=== PATIENT | female | born 1925 | race Caucasian/White ===

== ENCOUNTER 2017-05-20 10:18 | Inpatient (IN) | payer OTHER ==
--- NOTE | 2017-05-20 10:27 | PDOC ---
History of Present Illness - General History Source: Patient Exam Limitations: No Limitations - History of Present Illness Initial Comments: 05/20/17 11:02 The patient is a 89 year old female, BIBA with a significant past medical history of afib on coumadin, HTN who presents to the emergency department with progressively worsening decreased appetite, weakness, and fatigue for 1 week. The patients family reports the patient has had a decrease in appetite refusing to eat and reports yesterday only eating a piece of toast. The patient s family reports also the patient has been unwilling to ambulate by herself secondary to weakness/fatigue. In addtion the patient's family notes the patient having a fall after she tripped on her sheets about a week ago, landing on her right side with no active complaints of pain at this time. Denies any LOC or head strike. Brother in law also reports increased b/l LE edema. She denies recent fevers, chills, headache or dizziness. She denies recent nausea, vomit, diarrhea or constipation. No focal weakness or numbness. She denies recent dysuria, frequency, urgency or hematuria. She denies recent chest pain or shortness of breath. Prior to 1 week ago, her brother in law reports she was eating normally and using her walker to ambulate without difficulty which is her baseline. Allergies: NKA Past surgical history: None reported. Social history: Nonsmoker. Denies EtOH use and recreational drug use. Primary Care Physician: <Higinio Mcnally - Last Filed: 05/20/17 11:28> <Leoncio Dawson - Last Filed: 05/20/17 15:06> - General Chief Complaint: Weakness Stated Complaint: FAILURE TO THRIVE Time Seen by Provider: 05/20/17 10:27 Past History <Higinio Mcnally - Last Filed: 05/20/17 11:28> - Past Medical History Cardiac Disorders: Yes (A FIB) HTN: Yes Hypercholesterolemia: Yes - Immunization History Td Vaccination: Yes Immunization Up to Date: No - Psycho/Social/Smoking Cessation Hx Anxiety: No Suicidal Ideation: No Smoking Status: No Smoking History: Never smoked Have you smoked in the past 12 months: No Number of Cigarettes Smoked Daily: 0 Hx Alcohol Use: No Drug/Substance Use Hx: No Substance Use Type: None <Leoncio Dawson - Last Filed: 05/20/17 15:06> - Past Medical History Allergies/Adverse Reactions: Allergies Allergy/AdvReac Type Severity Reaction Status Date / Time No Known Allergies Allergy Verified 05/20/17 10:50 Home Medications: Ambulatory Orders NK [No Known Home Medication] 05/20/17 Review of Systems - Review of Systems Able to Perform ROS?: Yes Comments:: 05/20/17 11:02 GENERAL/CONSTITUTIONAL: No fever or chills. +weakness. +decreased appetite. HEAD, EYES, EARS, NOSE AND THROAT: No change in vision. No ear pain or discharge. No sore throat. CARDIOVASCULAR: No chest pain or shortness of breath. RESPIRATORY: No cough, wheezing, or hemoptysis. GASTROINTESTINAL: No nausea, vomiting, diarrhea or constipation. GENITOURINARY: No dysuria, frequency, or change in urination. MUSCULOSKELETAL: No joint or muscle swelling or pain. No neck or back pain. SKIN: No rash. + LE edema NEUROLOGIC: No headache, vertigo, loss of consciousness, or change in strength/ sensation. ENDOCRINE: No increased thirst. No abnormal weight change. HEMATOLOGIC/LYMPHATIC: No anemia, easy bleeding, or history of blood clots. ALLERGIC/IMMUNOLOGIC: No hives or skin allergy. <Higinio Mcnally - Last Filed: 05/20/17 11:28> *Physical Exam - Vital Signs Last Vital Signs Temp Pulse Resp BP Pulse Ox 97.7 F 70 16 90/63 97 05/20/17 10:20 05/20/17 10:20 05/20/17 10:20 05/20/17 10:20 05/20/17 10:20 - Physical Exam Comments: 05/20/17 11:03 GENERAL: Awake, alert, and fully oriented, in no acute distress HEAD: No signs of trauma EYES: PERRLA, EOMI, sclera anicteric, conjunctiva clear ENT: Auricles normal inspection, hearing grossly normal, nares patent, oropharynx clear without exudates. Dry mucosa NECK: Normal ROM, supple, no lymphadenopathy, JVD, or masses LUNGS: Breath sounds equal, clear to auscultation bilaterally. No wheezes, and no crackles HEART: irregularly irregular, rate 74, no murmurs, rubs or gallops ABDOMEN: Soft, nontender, normoactive bowel sounds. No guarding, no rebound. No masses EXTREMITIES: 2+pitting edema bilaterally R>L. Erythema to the anterior distal right calf circumferentially. Mild erythema to the distal left calf posteriorly. No induration. Normal range of motion. . No clubbing or cyanosis. NEUROLOGICAL: Normal speech, cranial nerves intact, negative pronator drift, 5/ 5 strength in all 4 extremities, normal sensation to light touch in all 4 extremities, normal cerebellar exam, normal gait, normal reflexes and tone SKIN: Warm, Dry, normal turgor <Higinio Mcnally - Last Filed: 05/20/17 11:28> Heart Score/ECG Review - ECG Impressions Comment:: 05/20/17 11:28 EKG Impressions reported by at 11:28 In Afib with 60bpm Normal axis T Wave inversion in leads 1 AVL, 2 and V2-V6 ST depressions in leads V2- 1 AVL, and V4-V6 with no ST elevations When compared to EKG to 2001 T wave inversion in 1 AVL are new. <Higinio Mcnally - Last Filed: 05/20/17 11:28> ED Treatment Course - LABORATORY CBC & Chemistry Diagram: 05/20/17 11:05 05/20/17 11:05 <Higinio Mcnally - Last Filed: 05/20/17 11:28> - LABORATORY CBC & Chemistry Diagram: 05/20/17 11:05 05/20/17 11:05 <Leoncio Dawson - Last Filed: 05/20/17 15:06> Medical Decision Making - Medical Decision Making 05/20/17 13:30 89-year-old female history of A. fib on Coumadin and hypertension who presents with 1 week of or appetite associated with generalized weakness. Her son in law reports that she has only eaten a piece of toast over the last 2 days. On presentation she was hypotensive to the 90s systolic and on physical exam had dry mucous membranes and 2+ lower extremity edema. History is concerning for progressive CHF versus ACS versus infectious etiology (UTI vs PNA) as cause for generalized weakness/decreased appetite. Will also do trauma workup given fall last week. -labs -UA -CXR/pelvis XR -CTH -500cc bolus -US LE b/l -admit 05/20/17 15:05 Workup thus far remarkable for hypokalemia at 2.4 and BNP in the 1999s. Chest x- ray also concerning for vascular congestion. Likely acute heart failure. Spoke with Dr. Alvarado, the patient's PMD who does not admit to the hospital. I discussed all the findings with Dr. Alvarado and have admitted pt to the hospitalist. <Leoncio Dawson - Last Filed: 05/20/17 15:06> *DC/Admit/Observation/Transfer - Attestations Scribe Attestion: 05/20/17 11:03 Documentation prepared by Higinio Mcnally, acting as medical radiation tech for Leoncio Dawson MD. <Higinio Mcnally - Last Filed: 05/20/17 11:28> - Discharge Dispostion Admit: Yes - Attestations Physician Attestion: 05/20/17 15:06 I, Dr. Leoncio Dawson MD, attest that this document has been prepared under my direction and personally reviewed by me in its entirety. I further attest, that it accurately reflects all work, treatment, procedures and medical decision -making performed by me. <Leoncio Dawson - Last Filed: 05/20/17 15:06> Diagnosis at time of Disposition: Heart failure Qualifiers: Heart failure type: unspecified heart failure type Heart failure chronicity: unspecified heart failure chronicity Qualified Code(s): I50.9 - Heart failure, unspecified - Discharge Dispostion Condition at time of disposition: Stable - Referrals Referrals: Blue Nicholas MD [Primary Care Provider] -
[2017-05-20] MEDS ORDERED: SODIUM CHLORIDE 0.9% 1000 ML INFUS.BAG IV ONE ×2 (10:41→10:44)
[2017-05-20 11:48] LABS: INR 3.6 (0.82-1.09); PROTHROMBIN TIME (PATIENT) 40.7 SEC (9.98-11.88)
[2017-05-20 11:51] LABS: ACTIVATED PTT 47.5 SECONDS (26.9-34.4)
[2017-05-20 11:53] LABS: BASOPHIL 0.5 % (0-2.0); EOSINOPHIL 2.1 % (0-4.5); MCH 28.2 pg (25.7-33.7); MCHC 32.9 g/dl (32.0-36.0); MEAN CELL VOLUME 85.8 fl (80-96); MEAN PLT VOLUME 8.4 fl (7.5-11.1); NEUTROPHILS 78.5 % (42.8-82.8); PLATELET COUNT 144 K/MM3 (134-434); RDW 16.8 % (11.6-15.6); WHITE BLOOD COUNT 7.8 K/mm3 (4.0-10.0)
[2017-05-20 12:32] LABS: ALBUMIN 3.5 g/dl (3.4-5.0); ALK PHOS 70 U/L (45-117); ANION GAP 15 (8-16); BILIRUBIN,TOTAL 0.8 mg/dL (0.2-1.0); CALCIUM 9.1 mg/dL (8.5-10.1); CO2 32 mmol/L (21-32); CREATININE 2.7 mg/dL (0.55-1.02); GLUCOSE,RANDOM 127 mg/dL (74-106); MAGNESIUM 3.3 mg/dL (1.8-2.4); SGOT/AST 14 U/L (15-37); SGPT/ALT 17 U/L (12-78); TOT PROT 6.5 g/dl (6.4-8.2)
[2017-05-20] MEDS ORDERED: POTASSIUM CHLORIDE ORAL LIQUID 20 MEQ/15 ML PO ONE ×2 (13:02→23:47)
[2017-05-20] MEDS ORDERED: POTASSIUM CHLORIDE ORAL LIQUID 20 MEQ/15 ML ONE (13:59)
--- NOTE | 2017-05-20 14:02 | EKG ---
Test Reason : Blood Pressure : / mmHG Vent. Rate : 060 BPM Atrial Rate : 056 BPM P-R Int : 000 ms QRS Dur : 074 ms QT Int : 420 ms P-R-T Axes : 000 -09 199 degrees QTc Int : 420 ms POOR DATA QUALITY, INTERPRETATION MAY BE ADVERSELY AFFECTED ATRIAL FIBRILLATION LOW VOLTAGE QRS ABNORMAL ECG WHEN COMPARED WITH ECG OF 22-JUN-2002 11:40, SIGNIFICANT CHANGES HAVE OCCURRED Confirmed by MIKEY SIGALA, ZACKERY ([id number]) on 05/20/2017 2:01:51 PM Referred By: Confirmed By:ZACKERY JENSEN MD
[2017-05-20 14:22] LABS: TROPONIN I 0.02 ng/ml (0.00-0.05)
--- NOTE | 2017-05-20 15:03 | HP ---
Admitting History and Physical - Smoking History Smoking history: Never smoked Have you smoked in the past 12 months: No Aproximately how many cigarettes per day: 0 - Alcohol/Substance Use Hx Alcohol Use: No Home Medications - Allergies Allergies/Adverse Reactions: Allergies Allergy/AdvReac Type Severity Reaction Status Date / Time No Known Allergies Allergy Verified 05/20/17 10:50 - Home Medications Home Medications: Ambulatory Orders NK [No Known Home Medication] 05/20/17 Physical Examination Vital Signs: Vital Signs Temperature 97.7 F 05/20/17 10:20 Pulse Rate 70 05/20/17 10:20 Respiratory Rate 16 05/20/17 10:20 Blood Pressure 90/63 05/20/17 10:20 O2 Sat by Pulse Oximetry (%) 97 05/20/17 10:20 Labs: CBC, BMP 05/20/17 11:05 05/20/17 11:05
--- NOTE | 2017-05-20 16:35 | HP ---
CHIEF COMPLAINT: Decrease in appetite PCP: Dr. Scruggs HISTORY OF PRESENT ILLNESS: This is an 89 year old female with PMHx of A.fib (on Coumadin), HTN, diastolic CHF?, chronic gout, arthritis, who presented to the ED with decrease in appetite beginning about 5 days ago, weakness, and fatigue. The patient's sister and [id number] at bedside. They report about one week ago the patient tripped over her sheets landing on her right side. They deny any head trauma stating the patient has not had any complaints of pain since falling. Since the fall, the patient has had progressive decrease in appetite. The [id number] states in the past two days she has only had 1/4 piece of toast. ER course was notable for: (1) INR 3.6 (2) Na 127 (3) K 2.6: 40 meq po given (4) BUN 90, Cr 2.7 (5) Head CT: with no evidence of acute intracranial pathology. Small chronic bilateral basal ganglia infarcts. Mild periventricular microvascular ischemic gliosis (6) Hip/pelvis CT: No acute bony abnormalities are seen (7) Bilateral lower extremity doppler negative for DVT (8) Temp 97.7, HR 70, BP 90/63, RR 16, Or 97% on RA Recent Travel: denies PAST MEDICAL HISTORY: As above Social History: Smoking: Denies Alcohol: Denies Drugs: Denies Family History: Allergies No Known Allergies Allergy (Verified 05/20/17 10:50) HOME MEDICATIONS: Home Medications Medication Instructions Recorded Allopurinol 300 mg PO DAILY 05/20/17 Carvedilol [Coreg] 6.25 mg PO BID 05/20/17 Furosemide [Lasix] 80 mg PO BID 05/20/17 Metolazone 2.5 mg PO DAILY 05/20/17 Potassium Chloride 20 meq PO DAILY 05/20/17 Valsartan [Diovan] 160 mg PO DAILY 05/20/17 Warfarin Sodium 2.5 mg PO DAILY 05/20/17 REVIEW OF SYSTEMS CONSTITUTIONAL: Generalized weakness and decrease in appetite Absent: fever, chills, diaphoresis, weight change HEENT: Absent: rhinorrhea, nasal congestion, throat pain, throat swelling, difficulty swallowing, mouth swelling, ear pain, eye pain, visual changes CARDIOVASCULAR: Lower extremity edema. Absent: chest pain, syncope, palpitations , lightheadedness RESPIRATORY: Absent: cough, shortness of breath, dyspnea with exertion, wheezing , stridor, hemoptysis GASTROINTESTINAL:Absent: abdominal pain, abdominal distension, nausea, vomiting , diarrhea, constipation, melena, hematochezia GENITOURINARY: Absent: dysuria, frequency, urgency, hesitancy, hematuria, flank pain, genital pain MUSCULOSKELETAL: Absent: myalgia, joint swelling, back pain, neck pain SKIN: Absent: rash, itching, pallor HEMATOLOGIC/IMMUNOLOGIC: Absent: easy bleeding, easy bruising, lymphadenopathy, frequent infections ENDOCRINE: Absent: unexplained weight gain, unexplained weight loss, heat intolerance, cold intolerance NEUROLOGIC: Absent: headache, focal weakness or paresthesias, dizziness, seizure , mental status changes PSYCHIATRIC: Absent: anxiety, depression, suicidal or homicidal ideation, hallucinations. PHYSICAL EXAMINATION GENERAL: Awake, alert, in no acute distress. HEAD: Normal with no signs of trauma. EYES: Pupils equal, round and reactive to light, extraocular movements intact, sclera anicteric, conjunctiva clear. No lid lag. EARS, NOSE, THROAT: Ears normal, nares patent, oropharynx clear without exudates. Moist mucous membranes. NECK: Normal range of motion, supple without lymphadenopathy, JVD, or masses. LUNGS: Breath sounds equal, clear to auscultation bilaterally. No wheezes, and no crackles. No accessory muscle use. HEART: Irregularly irregular. S1 and S2 ABDOMEN: Soft, nontender, not distended, normoactive bowel sounds, no guarding, no rebound, no masses. MUSCULOSKELETAL: Normal range of motion at all joints. No bony deformities or tenderness. No CVA tenderness. UPPER EXTREMITIES: 2+ pulses, warm, well-perfused. No cyanosis. No clubbing. No peripheral edema. LOWER EXTREMITIES: B/l lower extremity 2+ pitting edema. 2+ pulses, warm, well- perfused. No calf tenderness. No peripheral edema. NEUROLOGICAL: Cranial nerves II-XII intact PSYCHIATRIC: Cooperative. Good eye contact. Appropriate mood and affect. CBCD WBC 7.8 K/mm3 (4.0-10.0) 05/20/17 11:05 RBC 4.55 M/mm3 (3.60-5.2) 05/20/17 11:05 Hgb 12.8 GM/dL (10.7-15.3) 05/20/17 11:05 Hct 39.0 % (32.4-45.2) 05/20/17 11:05 MCV 85.8 fl (80-96) 05/20/17 11:05 MCHC 32.9 g/dl (32.0-36.0) 05/20/17 11:05 RDW 16.8 % (11.6-15.6) H 05/20/17 11:05 Plt Count 144 K/MM3 (134-434) 05/20/17 11:05 MPV 8.4 fl (7.5-11.1) 05/20/17 11:05 CMP Sodium 127 mmol/L (136-145) L 05/20/17 11:05 Potassium 2.6 mmol/L (3.5-5.1) L* 05/20/17 11:05 Chloride 80 mmol/L (98-107) L 05/20/17 11:05 Carbon Dioxide 32 mmol/L (21-32) 05/20/17 11:05 Anion Gap 15 (8-16) 05/20/17 11:05 BUN 90 mg/dL (7-18) H 05/20/17 11:05 Creatinine 2.7 mg/dL (0.55-1.02) H 05/20/17 11:05 Creat Clearance w eGFR 16.59 (>60) 05/20/17 11:05 Random Glucose 127 mg/dL (74-106) H 05/20/17 11:05 Calcium 9.1 mg/dL (8.5-10.1) 05/20/17 11:05 Total Bilirubin 0.8 mg/dL (0.2-1.0) 05/20/17 11:05 AST 14 U/L (15-37) L 05/20/17 11:05 ALT 17 U/L (12-78) 05/20/17 11:05 Alkaline Phosphatase 70 U/L (45-117) 05/20/17 11:05 Total Protein 6.5 g/dl (6.4-8.2) 05/20/17 11:05 Albumin 3.5 g/dl (3.4-5.0) 05/20/17 11:05 CARDIAC ENZYMES Troponin I 0.02 ng/ml (0.00-0.05) 05/20/17 11:05 Assessment: This is an 89 year old female with PMHx of Ryan (on Coumadin), HTN , diastolic CHF?, chronic gout, arthritis, who presented to the ED with decrease in appetite beginning about 5 days ago, weakness, and fatigue. Plan: 1) : SERG on CKD - Baseline Cr 1.3 (from pcp labs 02/16/2017) - SERG due to thiazide diuretics (sodium 127) vs. dehydration vs. obstruction vs. worsening CKD? - F/u urine electrolytes to calculate FeUrea - F/u urine sodium/urine osmo - Renal/bladder ultrasound with moderately atrophic kidneys with no evidence of hydronephrosis or acute pathology - Hold ARB - Hold Metolazone - Hold Lasix for now given SERG. While patient has 2+ pitting edema, it appears 3 -4+ is baseline according to ED note from 04/17/16. Lungs CTA on exam as well. - F/u nephrology consult 2) Cardiology: CHF, likely diastolic - F/u ECHO - Does not appear to be overloaded. However, f/u serum osmo - As above, hold Metolazone and Lasix 2/2 SERG - Continue Coreg - F/u cardiology consult A.fib - Hold Coumadin as INR supratherpeutic - Continue Coreg for rate control 3) MSK: Chronic gout - Continue Allopurinol 4) F/E/N: - Sodium controlled diet - Hyponatremia: hypovolemia vs. hypervolemia. F/u serum osmo, urine osmo, urine sodium - Hypokalemia: repleted in ED, f/u PM BMP - Dietary consult for poor po intake - Family reports patient has good po fluid intake - F/u TSH, HgbA1c 5) Prophylaxis: - Hold chemical DVT prophylaxis as the patient's INR is supratherapeutic - SCDs bilaterally - PT evaluation 6) Dispo: - Requires continued inpatient care CODE STATUS: FULL CODE Problem List - Problem (1) Hypokalemia Code(s): E87.6 - HYPOKALEMIA (2) Hyponatremia Code(s): E87.1 - HYPO-OSMOLALITY AND HYPONATREMIA (3) SERG (acute kidney injury) Code(s): N17.9 - ACUTE KIDNEY FAILURE, UNSPECIFIED (4) CKD (chronic kidney disease) Code(s): N18.9 - CHRONIC KIDNEY DISEASE, UNSPECIFIED Visit type - Emergency Visit Emergency Visit: Yes ED Registration Date: 05/20/17 Care time: The patient presented to the Emergency Department on the above date and was hospitalized for further evaluation of their emergent condition. - New Patient This patient is new to me today: Yes Date on this admission: 05/20/17 - Critical Care Critical Care patient: No
--- NOTE | 2017-05-20 17:53 | CON.CARD ---
Consult Consult Specialty:: Cardiology Reason for Consultation:: Afib. Generalized fatigue - History of Present Illness Chief Complaint: Decreased appetite History of Present Illness: This is an 89 year old female with a PMH of AFIB on coumadin. History of HTN. She was on a combination of Lasix 80 mg PO bid and metolazone as and out patient. She presents today (05/20/17) with generalized fatigue and a decreased appetite. Her EKG shows AFIB at 60 BPM with low voltage. Her Sodium was 127, K+ 2.6, Cr 2.7. Trops 0.02, BNP 2644, adn her INR was 3.6. She was noted by her family to have worsening lower extremity edema. She denies chest pain. - Alcohol/Substance Use Hx Alcohol Use: No - Smoking History Smoking history: Never smoked Have you smoked in the past 12 months: No Aproximately how many cigarettes per day: 0 Home Medications - Allergies Allergies/Adverse Reactions: Allergies Allergy/AdvReac Type Severity Reaction Status Date / Time No Known Allergies Allergy Verified 05/20/17 10:50 - Home Medications Home Medications: Ambulatory Orders Allopurinol 300 mg PO DAILY 05/20/17 Carvedilol [Coreg] 6.25 mg PO BID 05/20/17 Furosemide [Lasix] 80 mg PO BID 05/20/17 Metolazone 2.5 mg PO DAILY 05/20/17 Potassium Chloride 20 meq PO DAILY 05/20/17 Valsartan [Diovan] 160 mg PO DAILY 05/20/17 Warfarin Sodium 2.5 mg PO DAILY 05/20/17 Review of Systems Unable to obtain ROS, reason: As per HPI Vital Signs: Vital Signs Temperature 97.7 F 05/20/17 10:20 Pulse Rate 70 05/20/17 10:20 Respiratory Rate 16 05/20/17 10:20 Blood Pressure 90/63 05/20/17 10:20 O2 Sat by Pulse Oximetry (%) 97 05/20/17 10:20 Constitutional: Yes: Well Nourished, No Distress Neck: Yes: WNL Respiratory: Yes: Other (Minimal basilar crackles) Gastrointestinal: Yes: Soft Cardiovascular: Yes: Pulse Irregular Heart Sounds: Yes: S1, S2 (No MRHG) Edema: Yes Edema: LLE: 2+, RLE: 2+ Neurological: Yes: Alert, Oriented (Non focal) Psychiatric: Yes: WNL - Other Data Labs, Other Data: INR, PTT INR 3.60 (0.82-1.09) H 05/20/17 11:05 Assessment/Plan 89 year old female with a PMH of AFIB on coumadin. History of HTN. She was on a combination of Lasix 80 mg PO bid and metolazone as and out patient. She presents today (05/20/17) with generalized fatigue and a decreased appetite. Her EKG shows AFIB at 60 BPM with low voltage. Her Sodium was 127, K+ 2.6, Cr 2.7. Trops 0.02, BNP 2644, adn her INR was 3.6. She was noted by her family to have worsening lower extremity edema. Replete K+ Hold Diuretics Free water restriction Obtain echocardiogram Obtain TFT's Continue Coreg 6.25 mg PO BID Continue Diovan 160 mg PO daily AFIB Continue coumadin to an INR of 2 - 3 Wiill follow with you.
[2017-05-20 21:17] LABS: URINE APPEARANCE SLCLOUDY; URINE BILIRUBIN NEGATIVE (NEGATIVE); URINE BLOOD 1+ (NEGATIVE); URINE COLOR YELLOW; URINE GLUCOSE (UA) NEGATIVE (NEGATIVE); URINE KETONE NEGATIVE (NEGATIVE); URINE NITRITE NEGATIVE (NEGATIVE); URINE PROTEIN NEGATIVE (NEGATIVE); URINE UROBILINOGEN NEGATIVE mg/dL (0.2-1.0)
[2017-05-20] MEDS: CARVEDILOL 6.25 MG TABLET (FP) PO SCH (21:17)
[2017-05-20 21:18] LABS: URINE LEUK ESTERASE 1+ (NEGATIVE)
[2017-05-20 21:43] LABS: URINE BACTERIA RARE /hpf (NONE SEEN); URINE HYALINE CAST 7 /lpf; URINE MUCUS RARE; URINE RBC <1 /hpf (0-3); URINE WBC 10 /hpf (3-5)
[2017-05-20 22:14] LABS: SODIUM,RANDOM URINE 15 MMOL/L
[2017-05-20 22:35] LABS: URINE CREATININE 75.7 mg/dL (20-320)
[2017-05-20 23:04] LABS: ANION GAP 12 (8-16); CALCIUM 8.6 mg/dL (8.5-10.1); CO2 31 mmol/L (21-32); CREATININE 2.4 mg/dL (0.55-1.02); GLUCOSE,RANDOM 150 mg/dL (74-106)
[2017-05-21 06:27] VITALS: BMI 28.2
[2017-05-21 07:59] LABS: BASOPHIL 0.6 % (0-2.0); EOSINOPHIL 2.1 % (0-4.5); MCH 28.4 pg (25.7-33.7); MCHC 33.1 g/dl (32.0-36.0); MEAN CELL VOLUME 85.7 fl (80-96); MEAN PLT VOLUME 8.9 fl (7.5-11.1); NEUTROPHILS 79.8 % (42.8-82.8); PLATELET COUNT 132 K/MM3 (134-434); RDW 16.6 % (11.6-15.6); WHITE BLOOD COUNT 6.3 K/mm3 (4.0-10.0)
[2017-05-21 08:14] LABS: INR 3.99 (0.82-1.09); PROTHROMBIN TIME (PATIENT) 45.2 SEC (9.98-11.88)
[2017-05-21 08:53] LABS: ALBUMIN 2.9 g/dl (3.4-5.0); ALK PHOS 58 U/L (45-117); ANION GAP 12 (8-16); BILIRUBIN,TOTAL 0.7 mg/dL (0.2-1.0); CALCIUM 8.4 mg/dL (8.5-10.1); CO2 30 mmol/L (21-32); GLUCOSE,RANDOM 110 mg/dL (74-106); SGOT/AST 17 U/L (15-37); SGPT/ALT 13 U/L (12-78); THYROID STIMULATING HORMONE 3.35 uIU/ml (0.358-3.74); TOT PROT 5.3 g/dl (6.4-8.2)
[2017-05-21] MEDS ORDERED: POTASSIUM CHLORIDE ORAL LIQUID 20 MEQ/15 ML PO ONE (09:29)
[2017-05-21] MEDS: CARVEDILOL 6.25 MG TABLET (FP) PO SCH ×2 (09:37→21:59)
[2017-05-21] MEDS: ALLOPURINOL 300 MG TABLET (FP) PO SCH (09:37)
--- NOTE | 2017-05-21 09:59 | CONSULT ---
Consultation: REQUESTING PROVIDER: CONSULT REQUEST: We have been asked to medically evaluate this patient for ( Nephrology ). HISTORY OF PRESENT ILLNESS: This is an 89 year old female with a PMH of, HTN, AFIB on coumadin. Which was brought to hospital for decraese in appetite from one last 5-6 days. Patient states that she had a fall few days ago but didn't hit her head, denies loc. In hospital skyler ws found to have, serg, hyponatremia, hypokalemia. Patient Denies taking, advil, motrin, neproxane. She take tylenol for pain. Denies any recent antibiotic use. Denies SOB,, chest pain , cough, puffiness of face. She states that she always have some b/l lower limb edema and has not noticed any change in swelling. Denies puffiness of face , denies abdominal distension, diarrhoea, vomiting. Denies any difficulty in urination, denies burning micturation, Denies any change in frequency. Unable to color of urine. States that she take her diuretic regularly but from last few days eating and drinking less. has History of HTN. She was on a combination of Lasix 80 mg PO bid and metolazone as and out patient. S Her Sodium was 127, K+ 2.6, Cr 2.7. Trops 0.02, BNP 2644, In ED patialejandra got IV fluid Her creatnine decreased from 2.7 to 2.0 Laboratory Tests 05/20/17 05/20/17 05/21/17 11:05 20:25 06:05 Potassium 2.6 L* 2.8 L* 3.0 L Creatinine 2.7 H 2.4 H 2.0 H Hemoglobin A1c % 05/21/17 06:05 Potassium Creatinine Hemoglobin A1c % 6.3 H REVIEW OF SYSTEMS: CONSTITUTIONAL: Absent: fever, chills, diaphoresis, generalized weakness, malaise, loss of appetite, weight change HEENT: Absent: rhinorrhea, nasal congestion, throat pain, CARDIOVASCULAR: Absent: chest pain, syncope, palpitations, irregular heart rate, lightheadedness , peripheral edema RESPIRATORY: Absent: cough, shortness of breath, dyspnea with exertion, orthopnea, GASTROINTESTINAL: Absent: abdominal pain, abdominal distension, nausea, vomiting, diarrhea, constipation, GENITOURINARY: Absent: dysuria, frequency, urgency, hesitancy, hematuria, flank pain, genital pain MUSCULOSKELETAL: chronic swelling in b/l lower limb. PHYSICAL EXAMINATION Vital Signs - 24 hr 05/20/17 05/20/17 05/20/17 17:50 17:56 18:10 Temperature Pulse Rate 58 L Pulse Rate [ 63 Apical] Respiratory 16 18 Rate Blood Pressure 96/47 Blood Pressure 100/53 [Right Arm] O2 Sat by Pulse 96 97 Oximetry (%) 05/20/17 05/20/17 05/20/17 19:24 21:13 22:37 Temperature 97.7 F Pulse Rate 63 Pulse Rate [ Apical] Respiratory 20 Rate Blood Pressure 102/55 Blood Pressure [Right Arm] O2 Sat by Pulse 96 98 Oximetry (%) 05/21/17 05/21/17 02:00 05:57 Temperature 98 F 97.9 F Pulse Rate 78 78 Pulse Rate [ Apical] Respiratory 20 21 Rate Blood Pressure 96/58 107/58 Blood Pressure [Right Arm] O2 Sat by Pulse Oximetry (%) GENERAL: Awake, alert, EARS, NOSE, THROAT:, oropharynx clear without exudates. dry mucous membranes. dry lips and perioral skin NECK: Normal range of motion, no JVD, or masses. LUNGS: Breath sounds equal, clear to auscultation bilaterally. No wheezes, and no crackles. No accessory muscle use. HEART: s1s2 normal, irregular, no murmur ABDOMEN: Soft, nontender, not distended, normoactive bowel sounds, no guarding, no rebound, no masses. UPPER EXTREMITIES: 2+ pulses, warm, well-perfused. No cyanosis No peripheral edema. LOWER EXTREMITIES: chronic peripheral edema. PSYCHIATRIC: Cooperative. Good eye contact.. SKIN: Warm, dry, normal turgor, Laboratory Results - last 24 hr 05/20/17 05/20/17 05/20/17 18:22 18:30 18:30 WBC RBC Hgb Hct MCV MCH MCHC RDW Plt Count MPV Neutrophils % Lymphocytes % Monocytes % Eosinophils % Basophils % INR Sodium Potassium Chloride Carbon Dioxide Anion Gap BUN Creatinine Creat Clearance w eGFR Random Glucose Hemoglobin A1c % Calcium Total Bilirubin AST ALT Alkaline Phosphatase Total Protein Albumin TSH Urine Color Yellow Urine Appearance Slcloudy Urine pH 5.0 Ur Specific Falkner <= 1.005 Urine Protein Negative Urine Glucose (UA) Negative Urine Ketones Negative Urine Blood 1+ H Urine Nitrite Negative Urine Bilirubin Negative Urine Urobilinogen Negative Ur Leukocyte Esterase 1+ H Urine RBC <1 Urine WBC 10 Ur Epithelial Cells Rare Urine Bacteria Rare Hyaline Casts 7 Urine Mucus Rare Ur Random Sodium 15 Ur Random Potassium 17.7 Ur Random Chloride < 10 Ur Random Urea Nitrogn 686 Urine Creatinine 75.7 05/20/17 05/21/17 05/21/17 20:25 06:05 06:05 WBC 6.3 RBC 4.11 Hgb 11.7 Hct 35.2 MCV 85.7 MCH 28.4 MCHC 33.1 RDW 16.6 H Plt Count 132 L MPV 8.9 Neutrophils % 79.8 Lymphocytes % 7.4 L Monocytes % 10.1 Eosinophils % 2.1 Basophils % 0.6 INR 3.99 H Sodium 130 L Potassium 2.8 L* Chloride 87 L Carbon Dioxide 31 Anion Gap 12 BUN 88 H Creatinine 2.4 H Creat Clearance w eGFR Random Glucose 150 H Hemoglobin A1c % Calcium 8.6 Total Bilirubin AST ALT Alkaline Phosphatase Total Protein Albumin TSH Urine Color Urine Appearance Urine pH Ur Specific Falkner Urine Protein Urine Glucose (UA) Urine Ketones Urine Blood Urine Nitrite Urine Bilirubin Urine Urobilinogen Ur Leukocyte Esterase Urine RBC Urine WBC Ur Epithelial Cells Urine Bacteria Hyaline Casts Urine Mucus Ur Random Sodium Ur Random Potassium Ur Random Chloride Ur Random Urea Nitrogn Urine Creatinine 05/21/17 05/21/17 06:05 06:05 WBC RBC Hgb Hct MCV MCH MCHC RDW Plt Count MPV Neutrophils % Lymphocytes % Monocytes % Eosinophils % Basophils % INR Sodium 129 L Potassium 3.0 L Chloride 87 L Carbon Dioxide 30 Anion Gap 12 BUN 82 H Creatinine 2.0 H Creat Clearance w eGFR 23.46 Random Glucose 110 H D Hemoglobin A1c % 6.3 H Calcium 8.4 L Total Bilirubin 0.7 AST 17 D ALT 13 D Alkaline Phosphatase 58 Total Protein 5.3 L Albumin 2.9 L TSH 3.35 Urine Color Urine Appearance Urine pH Ur Specific Falkner Urine Protein Urine Glucose (UA) Urine Ketones Urine Blood Urine Nitrite Urine Bilirubin Urine Urobilinogen Ur Leukocyte Esterase Urine RBC Urine WBC Ur Epithelial Cells Urine Bacteria Hyaline Casts Urine Mucus Ur Random Sodium Ur Random Potassium Ur Random Chloride Ur Random Urea Nitrogn Urine Creatinine Laboratory Tests 05/20/17 18:30 Ur Random Sodium 15 Ur Random Potassium 17.7 Ur Random Chloride < 10 Urine Creatinine 75.7 Active Medications Generic Name Dose Route Start Last Admin Trade Name Marco Antonio PRN Reason Stop Dose Admin Allopurinol 300 mg 05/21/17 10:00 05/21/17 09:37 Zyloprim - PO 300 mg DAILY FERNANDO Administration Carvedilol 6.25 mg 05/20/17 22:00 05/21/17 09:37 Coreg - PO 6.25 mg BID FERNANDO Administration ASSESSMENT/PLAN: SERG on ckd Hyponatremia. Hypokalemia HTN Afib. ? CHF Plan. FEurea 27.2, BuN : cr 33.3, Urine Na 15. which favour prerenal cause. Patient clinically appears to be dehydrated. Patient states that she has chronic b/l Lower extremity swelling and has not noticed any change. Patient also states that she is not eating properly from few days. Patient creatinine Has also improved after getting IV fluid. Renal usg shows b/l atrophic kidney. Hypokalemia could be due to use of lasix and metolazone. Serum K has improved from 2.6 to 3.0 after getting kcl. Hyponatremia can also occur due to adjuvant use of lasix and metolazne. Hold diuretics for now Get lipid profile and serum cortisole. TSH 3.35 Urine osmolality pending. Sr osmolality 296 keep free water intake below 1L. Monitor electrolyte and renal fucntion. Avoid nephrotoxic drugs. Monitor vitals. Dispo: We will continue to follow the patient. Thank you for this consultative opportunity. Visit type - Emergency Visit Emergency Visit: Yes ED Registration Date: 05/20/17 Care time: The patient presented to the Emergency Department on the above date and was hospitalized for further evaluation of their emergent condition. - New Patient This patient is new to me today: Yes Date on this admission: 05/21/17 - Critical Care Critical Care patient: No
--- NOTE | 2017-05-21 12:57 | PN ---
Progress Note (short form) - Note Progress Note: Subjective: The patient was seen and examined at the bedside, she reports feeling good today. She states that her legs do not "feel larger than usual". She denies any difficulty breathing. She reports she ate her whole breakfast. Current Medications Generic Name Dose Route Start Last Admin Trade Name Marco Antonio PRN Reason Stop Dose Admin Allopurinol 300 mg 05/21/17 10:00 05/21/17 09:37 Zyloprim - PO 300 mg DAILY FERNANDO Administration Carvedilol 6.25 mg 05/20/17 22:00 05/21/17 09:37 Coreg - PO 6.25 mg BID FERNANDO Administration Objective: Vital Signs Period Temp Pulse Resp BP Sys/Ramon Pulse Ox Last 24 Hr 97.7 F-98 F 58-78 16-21 96-110/47-60 96-98 Physical Exam: GENERAL: Awake, alert, in no acute distress. LUNGS: Breath sounds equal, clear to auscultation bilaterally. HEART: Irregularly irregular. S1 and S2 ABDOMEN: Soft, nontender, not distended, normoactive bowel sounds, no guarding, no rebound, no masses. MUSCULOSKELETAL: Normal range of motion at all joints. No bony deformities or tenderness. No CVA tenderness. UPPER EXTREMITIES: 2+ pulses, warm, well-perfused. No cyanosis. No clubbing. No peripheral edema. LOWER EXTREMITIES: B/l lower extremity 2+ pitting edema. 2+ pulses, warm, well- perfused. No calf tenderness. No peripheral edema. NEUROLOGICAL: Cranial nerves II-XII intact PSYCHIATRIC: Cooperative. Good eye contact. Appropriate mood and affect. CBCD WBC 6.3 K/mm3 (4.0-10.0) 05/21/17 06:05 RBC 4.11 M/mm3 (3.60-5.2) 05/21/17 06:05 Hgb 11.7 GM/dL (10.7-15.3) 05/21/17 06:05 Hct 35.2 % (32.4-45.2) 05/21/17 06:05 MCV 85.7 fl (80-96) 05/21/17 06:05 MCHC 33.1 g/dl (32.0-36.0) 05/21/17 06:05 RDW 16.6 % (11.6-15.6) H 05/21/17 06:05 Plt Count 132 K/MM3 (134-434) L 05/21/17 06:05 MPV 8.9 fl (7.5-11.1) 05/21/17 06:05 CMP Sodium 129 mmol/L (136-145) L 05/21/17 06:05 Potassium 3.0 mmol/L (3.5-5.1) L 05/21/17 06:05 Chloride 87 mmol/L (98-107) L 05/21/17 06:05 Carbon Dioxide 30 mmol/L (21-32) 05/21/17 06:05 Anion Gap 12 (8-16) 05/21/17 06:05 BUN 82 mg/dL (7-18) H 05/21/17 06:05 Creatinine 2.0 mg/dL (0.55-1.02) H 05/21/17 06:05 Creat Clearance w eGFR 23.46 (>60) 05/21/17 06:05 Random Glucose 110 mg/dL (74-106) H D 05/21/17 06:05 Calcium 8.4 mg/dL (8.5-10.1) L 05/21/17 06:05 Total Bilirubin 0.7 mg/dL (0.2-1.0) 05/21/17 06:05 AST 17 U/L (15-37) D 05/21/17 06:05 ALT 13 U/L (12-78) D 05/21/17 06:05 Alkaline Phosphatase 58 U/L (45-117) 05/21/17 06:05 Total Protein 5.3 g/dl (6.4-8.2) L 05/21/17 06:05 Albumin 2.9 g/dl (3.4-5.0) L 05/21/17 06:05 CARDIAC ENZYMES Troponin I 0.02 ng/ml (0.00-0.05) 05/20/17 11:05 Assessment: This is an 89 year old female with PMHx of A.fib (on Coumadin), HTN , diastolic CHF?, chronic gout, arthritis, who presented to the ED with decrease in appetite beginning about 5 days ago, weakness, and fatigue. Plan: 1) : SERG on CKD - Baseline Cr 1.3 (from pcp labs 02/16/2017) - SERG due to thiazide diuretics (sodium 127) vs. dehydration vs. obstruction vs. worsening CKD? - Cr improving - FeUrea 24.7 suggestive of pre-renal - Renal/bladder ultrasound with moderately atrophic kidneys with no evidence of hydronephrosis or acute pathology - Hold ARB - Hold Metolazone - Hold Lasix for now given SERG. While patient has 2+ pitting edema, it appears 3 -4+ is baseline according to ED note from 04/17/16. Lungs CTA on exam as well. - F/u nephrology consult 2) Cardiology: Systolic and diastolic heart failure - Does not appear to be in failure at this time - ECHO reviewed - As above, hold Metolazone and Lasix 2/2 SERG - Continue Coreg - Appreciate cardiology consult A.fib - Hold Coumadin as INR supratherpeutic - Continue Coreg for rate control 3) MSK: Chronic gout - Continue Allopurinol 4) F/E/N: - Sodium controlled diet - Hyponatremia: continue to trend, po fluid restriction to 1L daily - Hypokalemia: repleted in ED, f/u PM BMP - Dietary consult for poor po intake - Family reports patient has good po fluid intake - TSH wnl - Hgb A1c 6.3 5) Prophylaxis: - Hold chemical DVT prophylaxis as the patient's INR is supratherapeutic - SCDs bilaterally - PT evaluation 6) Dispo: - Requires continued inpatient care CODE STATUS: FULL CODE Problem List - Problems (1) Hypokalemia Code(s): E87.6 - HYPOKALEMIA (2) Hyponatremia Code(s): E87.1 - HYPO-OSMOLALITY AND HYPONATREMIA (3) SERG (acute kidney injury) Code(s): N17.9 - ACUTE KIDNEY FAILURE, UNSPECIFIED (4) CKD (chronic kidney disease) Code(s): N18.9 - CHRONIC KIDNEY DISEASE, UNSPECIFIED Visit type - Emergency Visit Emergency Visit: Yes ED Registration Date: 05/20/17 Care time: The patient presented to the Emergency Department on the above date and was hospitalized for further evaluation of their emergent condition. - New Patient This patient is new to me today: No - Critical Care Critical Care patient: No
--- NOTE | 2017-05-21 15:53 | PN ---
Teaching Attending Note Name of Resident: Bar Still (Nephrology) ATTENDING PHYSICIAN STATEMENT I saw and evaluated the patient. I reviewed the resident's note and discussed the case with the resident. I agree with the resident's findings and plan as documented. Nephrology Consult Please see consult filled out by resident. Pt presents to the ER with decreased PO intake for several days. She was found to be in SERG. She was also found to be hypokalemic. Pt denies nsaid use. She says she does not have much appetite. She denies shortness of breath. pmhx a-fib htn chf gout nkda social hx denies family hx denies Current Medications Generic Name Dose Route Start Last Admin Trade Name Freq PRN Reason Stop Dose Admin Allopurinol 300 mg 05/21/17 10:00 05/21/17 09:37 Zyloprim - PO 300 mg DAILY FERNANDO Administration Carvedilol 6.25 mg 05/20/17 22:00 05/21/17 09:37 Coreg - PO 6.25 mg BID FERNANDO Administration Last Vital Signs Temp Pulse Resp BP Pulse Ox 98.0 F 79 18 107/56 98 05/21/17 14:00 05/21/17 14:00 05/21/17 14:00 05/21/17 14:00 05/21/17 09:00 Laboratory Tests 05/20/17 05/20/17 05/20/17 11:05 18:30 18:30 Potassium 2.6 L* Carbon Dioxide 32 Creatinine 2.7 H Urine Blood 1+ H Ur Leukocyte Esterase 1+ H Urine Bacteria Rare Hyaline Casts 7 Ur Random Sodium 15 05/20/17 05/21/17 20:25 06:05 Potassium 3.0 L Carbon Dioxide 31 30 Creatinine 2.0 H Urine Blood Ur Leukocyte Esterase Urine Bacteria Hyaline Casts Ur Random Sodium cardio s1s2 pulm clear GI soft ext venous stasis changes, chronic edema neuro awake and alert Impression 1. SERG 2. hypokalemia 3. decreased appetite 4. hx CHF 5. a-fib 6. HTN 7. gout 8. hyponatremia Plan - replace potassium - encourage PO intake - renal function is improving - feurea is low - hold diuretics for now - check tsh - check osms urine and plasma - check cortisol - will hold off IV fluids as she is starting to eat - will follow
--- NOTE | 2017-05-21 16:00 | PN ---
Progress Note, Physician Chief Complaint: Presently comfortable History of Present Illness: This is an 89 year old female with a PMH of AFIB on coumadin. History of HTN. She was on a combination of Lasix 80 mg PO bid and metolazone as and out patient. She presents today (05/20/17) with generalized fatigue and a decreased appetite. Her EKG shows AFIB at 60 BPM with low voltage. Her initial Sodium was 127, K+ 2.6, Cr 2.7. Trops 0.02, BNP 2644, adn her INR was 3.6. She was noted by her family to have worsening lower extremity edema. 05/21/17 Electrolytes are improving, presently she is asymptomatic. Echocardiogram 05/20/17 Mildly dilated LV EF 53.8 Normal LV function Nomal RV function Mild MAC Moderate AI - Current Medication List Current Medications: Active Medications Allopurinol (Zyloprim -) 300 mg PO DAILY [facility] Last Admin: 05/21/17 09:37 Dose: 300 mg Carvedilol (Coreg -) 6.25 mg PO BID [facility] Last Admin: 05/21/17 09:37 Dose: 6.25 mg - Objective Vital Signs: Vital Signs Temperature 98.0 F 05/21/17 14:00 Pulse Rate 79 05/21/17 14:00 Respiratory Rate 18 05/21/17 14:00 Blood Pressure 107/56 05/21/17 14:00 O2 Sat by Pulse Oximetry (%) 98 05/21/17 09:00 Constitutional: Yes: No Distress Neck: Yes: WNL Cardiovascular: Yes: Regular Rate and Rhythm, Pulse Irregular, S1, S2 (No MRHG) Respiratory: Yes: CTA Bilaterally Gastrointestinal: Yes: Soft Edema: LLE: 2+, RLE: 2+ Neurological: Yes: Alert (Non focal) Labs: CBC, BMP 05/21/17 06:05 05/21/17 06:05 INR, PTT INR 3.99 (0.82-1.09) H 05/21/17 06:05 Assessment/Plan 89 year old female with a PMH of AFIB on coumadin. History of HTN. She was on a combination of Lasix 80 mg PO bid and metolazone as and out patient. She presents today (05/20/17) with generalized fatigue and a decreased appetite. Her EKG shows AFIB at 60 BPM with low voltage. Her Sodium was 127, K+ 2.6, Cr 2.7. Trops 0.02, BNP 2644, adn her INR was 3.6. She was noted by her family to have worsening lower extremity edema. Replete K+ Agree with Hold Diuretics Agree with Free water restriction Obtain TFT's Continue Coreg 6.25 mg PO BID AFIB Continue coumadin to an INR of 2 - 3 Wiill follow with you.
[2017-05-22 08:23] LABS: ALBUMIN 2.7 g/dl (3.4-5.0); ANION GAP 8 (8-16); CALCIUM 8.4 mg/dL (8.5-10.1); CHOLESTEROL 142 mg/dL (50-200); CO2 32 mmol/L (21-32); CREATININE 1.8 mg/dL (0.55-1.02); GLUCOSE,RANDOM 97 mg/dL (74-106); MAGNESIUM 2.9 mg/dL (1.8-2.4); SGOT/AST 16 U/L (15-37); SGPT/ALT 14 U/L (12-78)
[2017-05-22 08:32] LABS: ALK PHOS 54 U/L (45-117); BILIRUBIN,TOTAL 0.6 mg/dL (0.2-1.0); INR 3.67 (0.82-1.09); LDL CHOLESTEROL (ONLY SJRH) 86 mg/dL (5-100); PROTHROMBIN TIME (PATIENT) 41.5 SEC (9.98-11.88); THYROID STIMULATING HORMONE 4.11 uIU/ml (0.358-3.74); TOT PROT 4.9 g/dl (6.4-8.2)
[2017-05-22] MEDS ORDERED: POTASSIUM CHLORIDE TABS 20 MEQ TABLET.ER (FP) PO ONE (08:48)
--- NOTE | 2017-05-22 08:50 | PN ---
Physical Exam: SUBJECTIVE: Patient seen and examined. sitting comfortably in chair. Eating breakfast. Denies sob, chest pain. Swelling in legs same. OBJECTIVE: Vital Signs Period Temp Pulse Resp BP Sys/Ramon Pulse Ox Last 24 Hr 97.2 F-98.2 F 69-85 18-20 97-122/52-61 96-98 GENERAL: Awake, alert, EARS, NOSE, THROAT:, oropharynx clear without exudates. dry mucous membranes. dry lips and perioral skin NECK: Normal range of motion, no JVD, or masses. LUNGS: Breath sounds equal, clear to auscultation bilaterally. No wheezes, and no crackles. No accessory muscle use. HEART: s1s2 normal, irregular, no murmur ABDOMEN: Soft, nontender, not distended, normoactive bowel sounds, no guarding, no rebound, no masses. UPPER EXTREMITIES: 2+ pulses, warm, well-perfused. No cyanosis No peripheral edema. LOWER EXTREMITIES: chronic peripheral edema. PSYCHIATRIC: Cooperative. Good eye contact.. SKIN: Warm, dry, normal turgor, Laboratory Results - last 24 hr 05/21/17 05/21/17 05/21/17 06:05 06:05 17:40 INR Sodium 129 L Potassium 3.0 L Chloride 87 L Carbon Dioxide 30 Anion Gap 12 BUN 82 H Creatinine 2.0 H Creat Clearance w eGFR 23.46 Random Glucose 110 H D Hemoglobin A1c % 6.3 H Calcium 8.4 L Magnesium Total Bilirubin 0.7 AST 17 D ALT 13 D Alkaline Phosphatase 58 Total Protein 5.3 L Albumin 2.9 L Triglycerides Cholesterol Total LDL Cholesterol HDL Cholesterol TSH 3.35 Urine Protein Urine Osmolality 376 U Random Total Protein Urine Creatinine Protein/Creatinin Ratio 05/21/17 05/21/17 05/22/17 17:40 20:43 05:50 INR Sodium 131 L Potassium 3.3 L Chloride 91 L Carbon Dioxide 32 Anion Gap 8 BUN 67 H Creatinine 1.8 H Creat Clearance w eGFR 26.49 Random Glucose 97 Hemoglobin A1c % Calcium 8.4 L Magnesium 2.9 H Total Bilirubin 0.6 AST 16 ALT 14 Alkaline Phosphatase 54 Total Protein 4.9 L Albumin 2.7 L Triglycerides 242 H Cholesterol 142 Total LDL Cholesterol 86 HDL Cholesterol 16 L TSH 4.11 H D Urine Protein 12 Urine Osmolality U Random Total Protein 12 H Urine Creatinine 66.0 Protein/Creatinin Ratio 0.18 05/22/17 05:50 INR 3.67 H Sodium Potassium Chloride Carbon Dioxide Anion Gap BUN Creatinine Creat Clearance w eGFR Random Glucose Hemoglobin A1c % Calcium Magnesium Total Bilirubin AST ALT Alkaline Phosphatase Total Protein Albumin Triglycerides Cholesterol Total LDL Cholesterol HDL Cholesterol TSH Urine Protein Urine Osmolality U Random Total Protein Urine Creatinine Protein/Creatinin Ratio Active Medications Generic Name Dose Route Start Last Admin Trade Name Freq PRN Reason Stop Dose Admin Allopurinol 300 mg 05/21/17 10:00 05/21/17 09:37 Zyloprim - PO 300 mg DAILY FERNANDO Administration Carvedilol 6.25 mg 05/20/17 22:00 05/21/17 21:59 Coreg - PO 6.25 mg BID FERNANDO Administration Potassium Chloride 40 meq 05/22/17 08:48 K-Dur - PO 05/22/17 08:49 ONCE ONE ASSESSMENT/PLAN: SERG on ckd Hyponatremia. Hypokalemia HTN Afib. ? CHF Plan. Creatnine improving 1.8 Hyponatremia improving Hypokalemia improving, 40meq kcl ordered continue to hold diuretics for now Labs reviewed. keep free water intake below 1L. Monitor electrolyte and renal fucntion. Avoid nephrotoxic drugs. Monitor vitals. Visit type - Emergency Visit Emergency Visit: Yes ED Registration Date: 05/20/17 Care time: The patient presented to the Emergency Department on the above date and was hospitalized for further evaluation of their emergent condition. - New Patient This patient is new to me today: No - Critical Care Critical Care patient: No
--- NOTE | 2017-05-22 09:23 | PN ---
Physical Exam: SUBJECTIVE: Patient seen and examined sitting on edge of bed. Eating dinner. Good appetite. Water pitcher at bedside. Fluids on dinner tray. OBJECTIVE: Vital Signs Period Temp Pulse Resp BP Sys/Ramon Pulse Ox Last 24 Hr 97.2 F-98.2 F 69-85 18-20 97-122/52-61 96 GENERAL: The patient is awake, alert, and fully oriented, in no acute distress. HEAD: Normal with no signs of trauma. EYES: PERRL, extraocular movements intact, sclera anicteric, conjunctiva clear. No ptosis. LUNGS: Breath sounds equal, clear to auscultation bilaterally, no wheezes, no crackles, no accessory muscle use. HEART: Regular rate and rhythm, S1, S2 without murmur, rub or gallop. ABDOMEN: Soft, nontender, nondistended, normoactive bowel sounds, no guarding, no rebound EXTREMITIES: 3-4+pitting edema, venous stasis changes bilateral shins to ankles , palpable pulses NEUROLOGICAL: Cranial nerves II through XII grossly intact. Normal speech, hesitant gait Laboratory Results - last 24 hr 05/21/17 05/21/17 05/21/17 17:40 17:40 20:43 INR Sodium Potassium Chloride Carbon Dioxide Anion Gap BUN Creatinine Creat Clearance w eGFR Random Glucose Calcium Magnesium Total Bilirubin AST ALT Alkaline Phosphatase Total Protein Albumin Triglycerides Cholesterol Total LDL Cholesterol HDL Cholesterol TSH Urine Protein 12 Urine Osmolality 376 U Random Total Protein 12 H Urine Creatinine 66.0 Protein/Creatinin Ratio 0.18 05/22/17 05/22/17 05:50 05:50 INR 3.67 H Sodium 131 L Potassium 3.3 L Chloride 91 L Carbon Dioxide 32 Anion Gap 8 BUN 67 H Creatinine 1.8 H Creat Clearance w eGFR 26.49 Random Glucose 97 Calcium 8.4 L Magnesium 2.9 H Total Bilirubin 0.6 AST 16 ALT 14 Alkaline Phosphatase 54 Total Protein 4.9 L Albumin 2.7 L Triglycerides 242 H Cholesterol 142 Total LDL Cholesterol 86 HDL Cholesterol 16 L TSH 4.11 H D Urine Protein Urine Osmolality U Random Total Protein Urine Creatinine Protein/Creatinin Ratio Active Medications Generic Name Dose Route Start Last Admin Trade Name Freq PRN Reason Stop Dose Admin Allopurinol 300 mg 05/21/17 10:00 05/21/17 09:37 Zyloprim - PO 300 mg DAILY FERNANDO Administration Carvedilol 6.25 mg 05/20/17 22:00 05/21/17 21:59 Coreg - PO 6.25 mg BID FERNANDO Administration Imaging 05/20/17 CXR: coarse changes since 2011, basilar atelectasis 05/20/17 CT head: no acute pathology 05/20/17 Xray pelvis: no acute pathology 05/20/17 US renal: moderately atrophic kidneys; no acute pathology 05/21/17 Echo: LV normal, normal EF; RV normal; AFSHIN; moderate AI, mild PI ASSESSMENT/PLAN 89 year-old female with PMH of HTN, afib on coumadin, heart failure, gout, and arthritis, admitted for SERG and electrolyte disarray. Acute on chronic kidney faiure --likely prerenal --Cr 2.7 on admission, trending to 1.8 (baseline 1.3) --continue to hold diuretics and fluid restrict 1L; remove water pitcher; reinforced water restriction with staff --renal following Diastolic heart failure Severe bilateral lower extremity edema --was on aggressive diuresis at home, Lasix 80mg BID and metolazone 2.mg daily --hold diuretics in view of SERG --strict I&Os, daily weights --severe b/l LE edema; poor historian, patient says her legs have been this swollen "since I was born"; elevation; HONG compression Atrial fibrillation --adequate rate control on carvedilol --INR 3.67, hold coumadin Gout --continue allopurinol Hypokalemia --repleted Hyponatremia --fluid restrict 1L F/E/N Fluids: PO intake adequate Electrolytes: replete as indicated Nutrition: low sodium Physical therapy eval DVT prophylaxis: continue to hold coumadin until INR 2-3; oob, ambulation Dispo: continues to require inpatient care. Full code.. Visit type - Emergency Visit Emergency Visit: Yes ED Registration Date: 05/20/17 Care time: The patient presented to the Emergency Department on the above date and was hospitalized for further evaluation of their emergent condition. - New Patient This patient is new to me today: Yes Date on this admission: 05/22/17 - Critical Care Critical Care patient: No
[2017-05-22] MEDS: CARVEDILOL 6.25 MG TABLET (FP) PO SCH ×2 (09:36→21:16)
[2017-05-22] MEDS: ALLOPURINOL 300 MG TABLET (FP) PO SCH (09:36)
--- NOTE | 2017-05-22 14:44 | PN ---
Progress Note, Physician Chief Complaint: Presently comfortable History of Present Illness: This is an 89 year old female with a PMH of AFIB on coumadin. History of HTN. She was on a combination of Lasix 80 mg PO bid and metolazone as and out patient. She presents today (05/20/17) with generalized fatigue and a decreased appetite. Her EKG shows AFIB at 60 BPM with low voltage. Her initial Sodium was 127, K+ 2.6, Cr 2.7. Trops 0.02, BNP 2644, adn her INR was 3.6. She was noted by her family to have worsening lower extremity edema. 05/22/17 Electrolytes are improving, presently she is asymptomatic. Echocardiogram 05/20/17 Mildly dilated LV EF 53.8 Normal LV function Nomal RV function Mild MAC Moderate AI - Current Medication List Current Medications: Active Medications Allopurinol (Zyloprim -) 300 mg PO DAILY [facility] Last Admin: 05/22/17 09:36 Dose: 300 mg Carvedilol (Coreg -) 6.25 mg PO BID [facility] Last Admin: 05/22/17 09:36 Dose: 6.25 mg - Objective Vital Signs: Vital Signs Temperature 97.6 F 05/22/17 09:00 Pulse Rate 64 05/22/17 09:00 Respiratory Rate 18 05/22/17 09:00 Blood Pressure 120/50 05/22/17 09:00 O2 Sat by Pulse Oximetry (%) 97 05/22/17 09:00 Constitutional: Yes: Well Nourished Neck: Yes: WNL Cardiovascular: Yes: Regular Rate and Rhythm, S1, S2 (No MRHG) Respiratory: Yes: CTA Bilaterally Gastrointestinal: Yes: Soft Extremities: Yes: WNL Edema: LLE: Trace, RLE: Trace Neurological: Yes: Alert, Oriented (Nonfocal) Psychiatric: Yes: WNL Labs: CBC, BMP 05/21/17 06:05 05/22/17 05:50 INR, PTT INR 3.67 (0.82-1.09) H 05/22/17 05:50 Assessment/Plan 89 year old female with a PMH of AFIB on coumadin. History of HTN. She was on a combination of Lasix 80 mg PO bid and metolazone as and out patient. She presents today (05/20/17) with generalized fatigue and a decreased appetite. Her EKG shows AFIB at 60 BPM with low voltage. Initially, her Sodium was 127, K+ 2.6 , Cr 2.7. Trops 0.02, BNP 2644, adn her INR was 3.6. She was noted by her family to have worsening lower extremity edema. Continue to Replete K+ Agree with holding Diuretics Agree with Free water restriction Continue Coreg 6.25 mg PO BID AFIB Continue coumadin to an INR of 2 - 3 Wiill follow with you.
--- NOTE | 2017-05-22 15:57 | PN ---
Teaching Attending Note Name of Resident: Bar Still (Nephrology) ATTENDING PHYSICIAN STATEMENT I saw and evaluated the patient. I reviewed the resident's note and discussed the case with the resident. I agree with the resident's findings and plan as documented. Renal Follow up Pt seen and examined at bedside. She denies shortness of breath. Current Medications Generic Name Dose Route Start Last Admin Trade Name Freq PRN Reason Stop Dose Admin Allopurinol 300 mg 05/21/17 10:00 05/22/17 09:36 Zyloprim - PO 300 mg DAILY FERNANDO Administration Carvedilol 6.25 mg 05/20/17 22:00 05/22/17 09:36 Coreg - PO 6.25 mg BID FERNANDO Administration Last Vital Signs Temp Pulse Resp BP Pulse Ox 98 F 69 18 103/53 97 05/22/17 14:41 05/22/17 14:41 05/22/17 14:41 05/22/17 14:41 05/22/17 09:00 cardio s1s2 pulm clear GI soft ext venous stasis changes, chronic edema neuro awake and alert Impression 1. SERG 2. hypokalemia 3. decreased appetite 4. hx CHF 5. a-fib 6. HTN 7. gout 8. hyponatremia Plan - renal function improving - cont potassium supplements - repeat labs in am - encourage PO intake - follow spep as she has isotonic hyponatremia
[2017-05-23 07:39] LABS: ALBUMIN 2.7 g/dl (3.4-5.0); ANION GAP 9 (8-16); CALCIUM 8.2 mg/dL (8.5-10.1); CO2 31 mmol/L (21-32); GLUCOSE,RANDOM 97 mg/dL (74-106); MAGNESIUM 2.8 mg/dL (1.8-2.4)
[2017-05-23 07:41] LABS: EOSINOPHIL 4.3 % (0-4.5); MCH 28.5 pg (25.7-33.7); MEAN CELL VOLUME 86.3 fl (80-96); MEAN PLT VOLUME 8.5 fl (7.5-11.1); PLATELET COUNT 128 K/MM3 (134-434); RDW 17.3 % (11.6-15.6); WHITE BLOOD COUNT 5.1 K/mm3 (4.0-10.0)
[2017-05-23 07:42] LABS: ALK PHOS 56 U/L (45-117); BILIRUBIN,TOTAL 0.7 mg/dL (0.2-1.0); CREATININE 1.4 mg/dL (0.55-1.02); PHOSPHOROUS 1.7 mg/dL (2.5-4.9); SGOT/AST 16 U/L (15-37); SGPT/ALT 15 U/L (12-78); TOT PROT 4.9 g/dl (6.4-8.2)
[2017-05-23 08:05] LABS: INR 2.66 (0.82-1.09); PROTHROMBIN TIME (PATIENT) 29.9 SEC (9.98-11.88)
[2017-05-23] MEDS: ALLOPURINOL 300 MG TABLET (FP) PO SCH (09:09)
[2017-05-23] MEDS: CARVEDILOL 6.25 MG TABLET (FP) PO SCH (09:09)
[2017-05-23] MEDS ORDERED: NAPH,MB-DB/K PH,MBDB POWDER PACKET PO ONE (10:00)
[2017-05-23 11:22] VITALS: BP 100/55; PULSE 65; TEMP 98
--- NOTE | 2017-05-23 13:35 | DS ---
Physical Exam: SUBJECTIVE: Patient seen and examined. OBJECTIVE: Vital Signs Period Temp Pulse Resp BP Sys/Ramon Pulse Ox Last 24 Hr 97.9 F-98.9 F 65-79 18-20 96-118/50-58 95-98 PHYSICAL EXAM GENERAL: The patient is awake, alert, and fully oriented, in no acute distress. HEAD: Normal with no signs of trauma. EYES: PERRL, extraocular movements intact, sclera anicteric, conjunctiva clear. No ptosis. LUNGS: Breath sounds equal, clear to auscultation bilaterally, no wheezes, no crackles, no accessory muscle use. HEART: Regular rate and rhythm, S1, S2 without murmur, rub or gallop. ABDOMEN: Soft, nontender, nondistended, normoactive bowel sounds, no guarding, no rebound EXTREMITIES: 3-4+pitting edema, venous stasis changes bilateral shins to ankles , palpable pulses NEUROLOGICAL: Cranial nerves II through XII grossly intact. Normal speech, hesitant gait LABS Laboratory Results - last 24 hr 05/22/17 05/23/17 05/23/17 05:50 05:35 05:35 WBC 5.1 RBC 3.82 Hgb 10.9 Hct 32.9 MCV 86.3 MCH 28.5 MCHC 33.0 RDW 17.3 H Plt Count 128 L MPV 8.5 Neutrophils % 73.0 Lymphocytes % 9.9 D Monocytes % 11.8 H Eosinophils % 4.3 D Basophils % 1.0 INR Sodium 133 L Potassium 4.0 D Chloride 93 L Carbon Dioxide 31 Anion Gap 9 BUN 47 H D Creatinine 1.4 H D Creat Clearance w eGFR 35.41 Random Glucose 97 Calcium 8.2 L Phosphorus 1.7 L Magnesium 2.8 H Total Bilirubin 0.7 AST 16 ALT 15 Alkaline Phosphatase 56 Total Protein 4.9 L Albumin 2.7 L Cortisol AM Sample 14.0 05/23/17 05:35 WBC RBC Hgb Hct MCV MCH MCHC RDW Plt Count MPV Neutrophils % Lymphocytes % Monocytes % Eosinophils % Basophils % INR 2.66 H Sodium Potassium Chloride Carbon Dioxide Anion Gap BUN Creatinine Creat Clearance w eGFR Random Glucose Calcium Phosphorus Magnesium Total Bilirubin AST ALT Alkaline Phosphatase Total Protein Albumin Cortisol AM Sample HOSPITAL COURSE: Date of Admission:05/20/17 Date of Discharge: 05/23/17 Imaging 05/20/17 CXR: coarse changes since 2011, basilar atelectasis 05/20/17 CT head: no acute pathology 05/20/17 Xray pelvis: no acute pathology 05/20/17 US renal: moderately atrophic kidneys; no acute pathology 05/21/17 Echo: LV normal, normal EF; RV normal; AFSHIN; moderate AI, mild PI ASSESSMENT/PLAN 89 year-old female with PMH of HTN, afib on coumadin, heart failure, gout, and arthritis, admitted for SERG and electrolyte disarray. Acute on chronic kidney faiure --likely prerenal --Cr 2.7 on admission, 1.4 at time of discharge (baseline 1.3) --during hospital stay diuretics were held and fluids restricted Diastolic heart failure Severe bilateral lower extremity edema --was on aggressive diuresis at home, Lasix 80mg BID and metolazone 2.mg daily --on discharge resumed lasix PO 40mg, to follow up with PCP to adjust dosage --keep legs elevated and compression wrapped Atrial fibrillation --adequate rate control on carvedilol --INR 2.66 at time of discharge, resume coumadin 2.5mg daily Gout --STOP allopurinol as this interacts with coumadin Minutes to complete discharge: 35 Discharge Summary Reason For Visit: HEART FAILURE Condition: Improved - Instructions Diet, Activity, Other Instructions: 1. You should STOP taking Allopurinol for now as this interacts with your coumadin. 2. You should STOP taking Losartan for now due to your acute kidney injury. 3. You should RESUME taking your Lasix at a LOWER DOSE. Take 40mg daily until you follow up with your primary care provider. A prescription has been sent to your pharmacy for this lower amount. 4. You should RESUME taking coumadin 2.5mg daily, starting tomorrow. 5. You should follow up with your primary care provider no later than Thursday or Thursday of this coming week. Call first thing on Thursday morning to make an appointment. Tell your provider that you were in the hospital and give him a copy of these instructions. You need to have your INR checked and blood work done. Return to the emergency department for any new or worsening symptoms. Referrals: Scottie Scruggs MD [Primary Care Provider] - Disposition: HOME - Home Medications Comprehensive Discharge Medication List: Ambulatory Orders Carvedilol [Coreg] 6.25 mg PO BID 05/20/17 Potassium Chloride 20 meq PO DAILY 05/20/17 Warfarin Sodium 2.5 mg PO DAILY 05/20/17 Furosemide [Lasix] 40 mg PO DAILY #30 tab 05/23/17 This patient is new to me today: No Emergency Visit: Yes ED Registration Date: 05/20/17 Care time: The patient presented to the Emergency Department on the above date and was hospitalized for further evaluation of their emergent condition. Critical Care patient: No - Discharge Referral Referred to [facility] No
[2017-05-23] MEDS ORDERED: WARFARIN NA 2.5 MG TABLET (FP) PO SCH (18:00)
[2017-05-26 00:08] LABS: A/G RATIO 1.3 (0.7-1.7); ALBUMIN 3.1 g/dL (2.9-4.4); GLOBULIN, TOTAL 2.4 g/dL (2.2-3.9); M-SPIKE Not Observed g/dL (Not Observed); TOTAL PROTEIN 5.5 g/dL (6.0-8.5)
== END 2017-05-23 12:29 | disposition home or self-care (01) | DRG 683 ==
LOC: JER 10:18 → JERBED 15:06 → J4W 18:35
PROVIDERS: ADMIT Internal Medicine; ATTEND Nurse Practitioner Acute Care
DX: N17.9 Acute kidney failure, unspecified (principal); I13.0 Hypertensive heart and chronic kidney disease with heart failure and stage 1 through stage 4 chronic kidney disease, or unspecified chronic kidney disease; E87.1 Hypo-osmolality and hyponatremia; I50.30 Unspecified diastolic (congestive) heart failure; N18.9 Chronic kidney disease, unspecified; I48.91 Unspecified atrial fibrillation; M10.9 Gout, unspecified; E87.6 Hypokalemia; R60.9 Edema, unspecified
CPT/HCPCS: 36415; 70450-TC; 71020-TC; 72170-TC; 76775-TC; 80048; 80053; 80061; 81003; 81015; 82436; 82533; 82570; 83036; 83721; 83735; 83880; 83930; 83935; 84100; 84133; 84155; 84156; 84165; 84300; 84443; 84484; 84540; 85025; 85610; 85730; 86850; 86900; 86901; 93005; 93010; 93306-TC; 93970-TC; 97116-GP; 97161-GP; 99284-25